=== PATIENT | female | born 1995 | race Caucasian/White ===

== ENCOUNTER 2021-08-05 16:42 | Emergency (ER) | payer SELFPAY ==
[2021-08-05 16:44] VITALS: BP 138/78; PULSE 92; RESP 16; TEMP 36.3; O2SAT 98; BMI 33.5
--- NOTE | 2021-08-05 16:58 | US_ITS ---
INDICATION: bleeding EXAMINATION: US OB Transvaginal TECHNIQUE: Transabdominal pelvic ultrasound was performed. Grayscale, spectral waveform, and color flow Doppler evaluation of the adnexa. COMPARISON: None. FINDINGS: UTERUS: Measures 8.4 x 4.7 x 3.9 cm. RIGHT OVARY: Measures 3.1 x 1.4 x 2.1 cm. Normal. LEFT OVARY: Measures 3.2 x 2.9 x 2.6 cm. There is a solid hypoechoic lesion in the left ovary measuring 1.3 x 1 x 1.2 cm. FREE FLUID: None. INTRAUTERINE GESTATIONAL SAC(s) (size/shape): Not identified. No adnexal ectopic visualized. US/Transvaginal w/Preg US IMPRESSION: of unknown location. Recommend serial beta hCGs and follow-up OB ultrasound in 1-2 weeks. 1.3 cm solid hypoechoic lesion in the left ovary is most likely a hemorrhagic corpus luteal cyst. Recommend close attention on follow-up. Electronically Signed: Raymundo Pan MD at 19:30 EDT Tel , Service support ,
--- NOTE | 2021-08-05 17:24 | ED.VIS.FEGU ---
HPI HPI - Female History of Present Illness Chief Complaint: Vag Bld, Preg Informant: patient Narrative Narrative: Patient presents with some mildly pink discharge that started today. Last menstrual cycle was 23 June. She is G1, P0. She has had some pelvic cramping off and on for about 2 weeks. This is not changed and is not different today. But she has never had the slightly pink discharge. She denies urinary symptoms. No lightheaded dizziness. No history of pelvic infections or surgery. She is on vitamins but no other meds. No medical conditions Medications: vitamins No known allergies. No abdominal or pelvic surgeries. Lives independently. [facility] Medical History Physical exam, pre-employment Home Medications no.144-folic acid [] 2 tab PO DAILY 08/05/21 [History Last Taken Unknown] Allergy/AdvReac Type Severity Reaction Status Date / Time No Known Allergies Allergy Verified 08/05/21 16:43 Social History Smoking Status: Current every day smoker tobacco type: cigarettes ROS ROS ED Constitutional Constitutional ED: Denies chills or fever(s) ENT ENT ED: Denies rhinorrhea Cardiovascular Cardiovascular: Denies chest pain, palpitations or racing heartbeat Respiratory/Chest Respiratory/Chest: Denies dyspnea Gastrointestinal Gastrointestinal: Denies constipation, diarrhea, melena, nausea or vomiting Genitourinary Genitourinary ED: Reports other Details: See history of present illness. ; Denies dysuria, hematuria or urinary frequency Musculoskeletal Musculoskeletal: Denies myalgias Integumentary Denies rash Neurologic Neurologic: Denies headache(s) Endocrine Endocrinology: Denies polydipsia or polyuria Hematologic/Lymphatic Hematologic/Lymphatic: Denies easy bruising Allergic/Immunologic Allergic/Immunologic ED: Denies urticaria EXAM Physical Exam Const Vital Signs: 08/05/21 16:44 Temperature 97.4 F L Temperature Source Temporal Pulse Rate 92 Respiratory Rate 16 Blood Pressure 138/78 H Blood Pressure Mean 98 Pulse Ox 98 Positive well nourished and well developed General Appearance ED: well developed and NAD; Negative for pallor HEENT Reports moist mucous membranes; Denies dry mucous membranes Negative for trauma Mouth ED: No dry mucous membranes Mouth: No dry mucous membranes Eyes General Eye ED: Negative for pale conjunctiva Neck no JVD Resp normal respiratory effort and clear to auscultation bilaterally Cardio regular rate and regular rhythm GI normal to inspection, nondistended, normoactive bowel sounds, soft to palpation, non-tender and non-distended Auscultation: normoactive bowel sounds Narrative: Nominal or pelvic area tenderness. No CVA tenderness. Neuro Sensorium / Orientation: alert Psych mental status grossly normal Skin no rashes or lesions noted General Skin Exam: Negative for pallor MDM MDM MDM Narrative Medical decision making narrative: Blood type is a positive. Quant is 619. Urine is negative. Ultrasound does not show any acute process. Patient's recheck. She has had no further spotting or pink coloration. She has no pain or discomfort. I do not think this represents an acute ectopic. She has a follow-up with her DESTINATION SPECIALIST physician in the morning. She will keep this. I explained that this could be in mentation bleed or a missed miscarriage or early miscarriage. She needs follow-up, likely repeat hCG and possible repeat ultrasound for definitive answer. Again we did discuss reasons to return. Lab Data Attestation: I reviewed the patient's lab results. Labs: Laboratory Results - last 24 hr 08/05/21 08/05/21 08/05/21 17:30 17:40 17:40 HCG, Quant 619 H Urine Color Yellow Urine Clarity Clear Urine pH 6.0 Ur Specific Helix 1.015 Urine Protein Negative Urine Glucose (UA) Normal Urine Ketones Negative Urine Occult Blood Negative Urine Nitrite Negative Urine Bilirubin Negative Urine Urobilinogen Normal Ur Leukocyte Esterase Negative Urine RBC 0 SEEN Urine WBC 0 SEEN Ur Squamous Epith Cells 0-5 SEEN Urine Bacteria 0 SEEN Urine Mucus 0 SEEN Blood Type A POSITIVE Radiography Diagnostic Testing: Clinical Impression(s) from Imaging Studies Obstetrics Ultrasound 08/05/21 16:58 IMPRESSION: of unknown location. Recommend serial beta hCGs and follow-up OB ultrasound in 1-2 weeks. 1.3 cm solid hypoechoic lesion in the left ovary is most likely a hemorrhagic corpus luteal cyst. Recommend close attention on follow-up. Electronically Signed: Raymundo Pan MD at 19:30 EDT Tel , Service support , Discharge Plan Triage Chief Complaint: Vag Bld, Preg ED Provider: Gold Jiménez Dx/Rx/DC Orders Clinical Impression: Threatened Instructions: ED Possible Miscarriage ... Prescriptions: No Action 400 mcg Tablet,Chewable 2 tab PO DAILY RF: 0 Primary Care Provider: Olive Ramos Referrals: Olive Ramos DO [Primary Care Provider] - 1 Day Disposition Disposition: Home, Self Care Discharge Date/Time: 08/05/21 20:09
[2021-08-05 17:38] LABS: Bacteria 0 SEEN /hpf (None Seen); Mucous, Urine 0 SEEN /hpf (<or=2+); Red Blood Cells-Urine 0 SEEN /hpf (0-5); White Blood Cells 0 SEEN /hpf (0-5)
[2021-08-05 18:01] LABS: Color, Urine Yellow (Yellow); Glucose, Dipstick Normal (Normal); Ketone-Dipstick Negative (Negative); Leukocyte Esterase-Dipstick Negative /ul (Negative); Nitrite-Dipstick Negative (Negative); Occult Blood-Urine Negative /ul (Negative); Protein-Dipstick Negative (Negative); Specific Gravity, Urine 1.015 (1.002-1.030); Urine Bilirubin Dipstick Negative (Negative); Urine Clarity Clear (Clear); Urine Urobilinogen Normal (Normal)
[2021-08-05 18:10] LABS: Squamous Epithelial Cells - UA 0-5 SEEN /hpf (5-10)
[2021-08-05 18:21] LABS: hCG Titer Quant., Serum 619 mIU/mL (1-3)
== END 2021-08-05 20:09 | disposition home or self-care (01) ==
PROVIDERS: Emergency Provider Emergency Medicine; PCP Obstetrics & Gynecology
DX: O20.0 Threatened abortion (principal); O99.330 Smoking (tobacco) complicating pregnancy, unspecified trimester; F17.210 Nicotine dependence, cigarettes, uncomplicated; Z3A.00 Weeks of gestation of pregnancy not specified
CPT/HCPCS: 76817; 81001; 84702; 86900; 86901; 99284; A4216

== ENCOUNTER 2021-08-15 16:06 | Emergency (ER) | payer OTHER, SELFPAY ==
[2021-08-15 16:07] VITALS: BP 122/107; PULSE 115; RESP 20; TEMP 36.1; O2SAT 98; BMI 33.7
--- NOTE | 2021-08-15 16:57 | EDS_ITS ---
HPI History of Present Illness Chief Complaint: Abd Pain Narrative Narrative: Patient is a 26-year-old female who is a G1, P0 approximately 7 weeks . She went and saw her OB today around 11 and had a ultrasound based on rising hCG levels. Patient states that this was accompanied by his bleeding and pain and that the ultrasound showed no signs of with in the uterus. Therefore she was discharged and advised to discuss having methotrexate injections secondary to an ectopic concern. Patient states that since that time she has had some increasing pain and secondary to this comes to the hospital for evaluation [facility] Medical History PCOS (polycystic ovarian syndrome) Physical exam, pre-employment Home Medications oxycodone-acetaminophen [Percocet] 1 tab PO Q6H PRN 3 Days #12 tab 08/15/21 [Rx Last Taken Unknown] promethazine 25 mg PO TID PRN #21 tab 08/15/21 [Rx Last Taken Unknown] Allergy/AdvReac Type Severity Reaction Status Date / Time No Known Allergies Allergy Verified 08/15/21 16:06 Social History Smoking Status: Current every day smoker tobacco type: cigarettes ROS ROS ED Constitutional Constitutional ED: Denies chills or fever(s) Cardiovascular Cardiovascular: Denies chest pain Respiratory/Chest Respiratory/Chest: Denies cough or dyspnea Gastrointestinal Gastrointestinal: Reports abdominal pain; Denies diarrhea, nausea or vomiting Genitourinary Genitourinary ED: Reports other Details: Positive vaginal bleeding ; Denies dysuria Musculoskeletal Musculoskeletal: Denies back pain or myalgias Integumentary Denies rash Neurologic Neurologic: Denies headache(s) Hematologic/Lymphatic Hematologic/Lymphatic: Denies easy bleeding or easy bruising EXAM Physical Exam Const Vital Signs: 08/15/21 16:07 Temperature 97.0 F L Temperature Source Temporal Pulse Rate 115 H Respiratory Rate 20 H Blood Pressure 122/107 H Blood Pressure Mean 112 Pulse Ox 98 Oxygen Delivery Method Room Air Positive well nourished and well developed General Appearance ED: well developed Eyes PERRL and EOMs intact bilaterally Neck supple Resp normal respiratory effort and clear to auscultation bilaterally Cardio regular rate and regular rhythm Rate: other Other Details: Radial pulses are plus 2 out of 4 bilaterally are equal and symmetric GI non-distended GI Narrative: There is mild tenderness palpation in the suprapubic to left lower quadrant region but no voluntary guarding or rigidity no pulsatile mass Auscultation: normoactive bowel sounds Palpation: soft Back/Spine no CVA tenderness Extremity normal to inspection Neuro oriented x3 and CN's II-XII intact bilaterally Sensorium / Orientation: alert Motor Exam: strength 5/5 throughout Psych mental status grossly normal Skin no rashes or lesions noted MDM MDM MDM Narrative Medical decision making narrative: Patient presented to the ER in no acute distress with a soft nonsurgical abdomen. I discussed the case with her BOX LINING MACHINE FEEDER Dr. Palacios. She inform you of the patient's outpatient blood work and the results of her ultrasound which occurred less than 8 hours ago. Therefore at this time with her abdominal exam in the ER and that blood work I do not feel there is need for repeat imaging or laboratory studies. Patient was given fluids morphine and Zofran. She stated there is only minimal improvement after the morphine so I did offer repeat ultrasound and pelvic exam. However patient states that as she just had the studies done she does not feel that repeating them are necessary. Therefore I gave the patient 1 mg of Dilaudid on reevaluation she reports improvement of her symptoms. Therefore at this time patient will be discharged home as her abdomen remains soft and nonsurgical and she will follow up with her BOX LINING MACHINE FEEDER for repeat evaluation Discharge Plan Triage Chief Complaint: Abd Pain ED Provider: Rohan Davis Dx/Rx/DC Orders Clinical Impression: Ectopic Instructions: ED Methotrexate for Ectopic ... Prescriptions: New oxycodone-acetaminophen [Percocet] 5-325 mg tablet 1 tab PO Q6H PRN (Reason: pain) 3 Days Qty: 12 RF: 0 promethazine 25 mg tablet 25 mg PO TID PRN (Reason: nausea and vomiting) Qty: 21 RF: 0 Primary Care Provider: Olive Ramos Referrals: Flakita Palacios MD [STAFF PHYSICIAN] - 1-2 Days if not improving Olive Ramos DO [Primary Care Provider] - Disposition Disposition: Home, Self Care
[2021-08-15] MEDS: Morphine 4 MG/ML Syringe IV (17:26)
[2021-08-15] MEDS: 0.9% Normal Saline 1,000 ML 999 ML IV (17:27)
[2021-08-15] MEDS: Ondansetron 4 MG/2 ML Vial IV (17:27)
[2021-08-15] MEDS: HYDROmorphone 1 MG/ML Syringe IV (18:08)
[2021-08-15 19:43] VITALS: BP 124/71; PULSE 84; O2SAT 98
== END 2021-08-15 20:03 | disposition home or self-care (01) ==
PROVIDERS: Emergency Provider Emergency Medicine; PCP Obstetrics & Gynecology
DX: O00.90 Unspecified ectopic pregnancy without intrauterine pregnancy (principal); O99.331 Smoking (tobacco) complicating pregnancy, first trimester; F17.210 Nicotine dependence, cigarettes, uncomplicated; Z3A.01 Less than 8 weeks gestation of pregnancy
CPT/HCPCS: 96361; 96374; 96375; 99283; J7030; A4216; J2405

== ENCOUNTER 2022-06-17 12:09 | Emergency (ER) | payer MEDICAID, SELFPAY ==
[2022-06-17 12:11] VITALS: BP 155/137; PULSE 116; RESP 20; TEMP 36.3; O2SAT 97; BMI 34.8
--- NOTE | 2022-06-17 12:17 | EX.ED.DYSGE1 ---
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 Lightheaded, she feels a little short of breath, she feels like her throat is swelling, and her left hand, where she was stung, is itchy but she denies any hives, peripheral swelling, or syncope. She does not remember ever having been stung by bee before. She is healthy. She is maybe 6 weeks . [facility] Medical History PCOS (polycystic ovarian syndrome) Physical exam, pre-employment Home Medications epinephrine 0.3 mg/0.3 mL injection, auto-injector 0.3 mg (0.3 mL) IM Q15M PRN anaphylaxis #2 ea 06/17/22 [Rx Last Taken Unknown] Allergy/AdvReac Type Severity Reaction Status Date / Time No Known Allergies Allergy Verified 06/17/22 12:13 Social History Smoking Status: Current every day smoker tobacco type: cigarettes ROS ROS ED Constitutional Constitutional ED: Denies chills or fever(s) Eyes Eyes: Denies change in vision or diplopia ENT ENT ED: Reports as per HPI and throat swelling; Denies rhinorrhea or sore throat Cardiovascular Cardiovascular: Denies chest pain or palpitations Respiratory/Chest Respiratory/Chest: Reports dyspnea; Denies cough Gastrointestinal Gastrointestinal: Denies abdominal pain, diarrhea, nausea or vomiting Genitourinary Genitourinary ED: Denies dysuria or hematuria Musculoskeletal Musculoskeletal: Denies back pain or neck pain Integumentary Reports as per HPI and pruritus; Denies abscess or rash Neurologic Neurologic: Denies headache(s), paresthesias or weakness Psychiatric Psychiatric: Denies anxiety or suicidal thoughts EXAM Physical Exam Const Vital Signs: 06/17/22 12:11 06/17/22 12:51 06/17/22 13:09 Temperature 97.3 F L Temperature Source Temporal Pulse Rate 116 H 97 91 Respiratory Rate 20 H 18 18 Blood Pressure 155/137 H 116/63 110/58 L Blood Pressure Mean 143 80 75 Pulse Ox 97 96 94 Oxygen Delivery Method Room Air Room Air Room Air Positive well nourished, well developed and obese General Appearance ED: well developed and NAD Nutritional Appearance: obese HEENT Reports moist mucous membranes normocephalic and atraumatic Eyes PERRL and EOMs intact bilaterally Neck full ROM and supple Resp normal respiratory effort and clear to auscultation bilaterally Cardio regular rate, regular rhythm and no murmurs Rate: tachycardic GI non-tender and non-distended Auscultation: normoactive bowel sounds Palpation: soft Back/Spine no CVA tenderness General Back: other FROM Extremity normal to inspection Extremity Narrative: Sting site in webspace between left fingers 3 and 4 is benign and nontender with no evidence of a foreign body or a wheal/flare reaction of any kind. General Extremety ED: Negative for edema, pulses abnormal or tenderness General Extremity: Negative for edema or pulses abnormal Neuro oriented x3, CN's II-XII intact bilaterally and no sensory deficits noted Sensorium / Orientation: awake and alert Motor Exam: strength 5/5 throughout Skin no rashes or lesions noted and no wounds Skin Narrative: No erythema on left hand which is where patient was stung and has pruritus. No rashes or urticaria. MDM MDM MDM Narrative Medical decision making narrative: I discussed risk and benefits of epinephrine, safe during . I offered her a half dose since her symptoms are mild she is not fully anaphylactic and she wants to try to avoid medications in the first place, I think that is reasonable and she does as well so she was given 0.15 mg IM and monitored. She had quick resolution of her symptoms, she was monitored for 2 hours and had no recurrence of any symptoms. I think she is stable to be discharged home. She was given a prescription for an EpiPen with a refill and we discussed use and reasons to return. She is comfortable with the plan. 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
[2022-06-17] MEDS: Epi Pen Junior (EQUIV) 0.15 MG Syringe IM (12:25)
--- NOTE | 2022-06-17 12:36 | ED.RN ---
Dr Olivas aware pt received Epi-pen.
[2022-06-17 12:51] VITALS: BP 116/63; PULSE 97; RESP 18; O2SAT 96
[2022-06-17 13:09] VITALS: BP 110/58; PULSE 91; RESP 18; O2SAT 94
[2022-06-17 14:00] VITALS: BP 106/54; PULSE 88; RESP 18; O2SAT 94
== END 2022-06-17 14:45 | disposition home or self-care (01) ==
PROVIDERS: Emergency Provider Emergency Medicine; Visit Provider Emergency Medicine
DX: O9A.211 Injury, poisoning and certain other consequences of external causes complicating pregnancy, first trimester (principal); O99.331 Smoking (tobacco) complicating pregnancy, first trimester; T63.454A Toxic effect of venom of hornets, undetermined, initial encounter; T78.2XXA Anaphylactic shock, unspecified, initial encounter; R06.02 Shortness of breath; F17.210 Nicotine dependence, cigarettes, uncomplicated; Z3A.01 Less than 8 weeks gestation of pregnancy
CPT/HCPCS: 96372; 99283

== ENCOUNTER 2022-07-13 13:55 | Emergency (ER) | payer MEDICAID, SELFPAY ==
[2022-07-13 13:56] VITALS: BP 144/82; PULSE 118; RESP 18; TEMP 36.6; O2SAT 97; BMI 36.6
--- NOTE | 2022-07-13 14:06 | EDS_ITS ---
HPI HPI - GI History of Present Illness Chief Complaint: Nausea/Vomiting Informant: patient Nausea/Vomiting/Emesis GI Symptom: Positive for Nausea and Vomiting Onset: Yesterday Quality: Positive for Nonbilious Severity: Severe Diarrhea/Melena/Hematochezia GI Symptom: Negative for Diarrhea, Melena or Hematochezia Associated Symptoms Associated Symptoms: Negative for Dysuria, Frequency, Hematuria or Urgency Narrative Narrative: Healthy 27-year-old patient 10 weeks , has had morning sickness for the past 3 weeks or so, significantly worse yesterday despite taking Zofran and vitamin B6, unable to keep down the medication and any fluids. She denies any syncope. She denies any abdominal pain, vaginal bleeding, discharge, other acute symptoms. [facility] Medical History PCOS (polycystic ovarian syndrome) Physical exam, pre-employment Home Medications epinephrine 0.3 mg/0.3 mL injection, auto-injector 0.3 mg (0.3 mL) IM Q15M PRN anaphylaxis #2 ea 06/17/22 [Rx Last Taken Unknown] metoclopramide HCl 10 mg tablet 10 mg PO Q6H PRN nausea and vomiting #20 tabs 07/13/22 [Rx Last Taken Unknown] ondansetron HCl 4 mg tablet 4 mg PO TID PRN Nausea 07/13/22 [History Last Taken Unknown] [id number]-[id number] 1 mg tablet 1 tab PO DAILY 07/13/22 [History Last Taken Unknown] pyridoxine (vitamin B6) 50 mg tablet 50 mg PO BID 07/13/22 [History Last Taken Unknown] Allergy/AdvReac Type Severity Reaction Status Date / Time No Known Allergies Allergy Verified 07/13/22 13:56 Social History Smoking Status: Current every day smoker tobacco type: cigarettes ROS ROS ED Constitutional Constitutional ED: Denies chills or fever(s) Eyes Eyes: Denies change in vision or diplopia ENT ENT ED: Denies rhinorrhea or sore throat Cardiovascular Cardiovascular: Denies chest pain or palpitations Respiratory/Chest Respiratory/Chest: Denies cough or dyspnea Gastrointestinal Gastrointestinal: Reports nausea and vomiting; Denies abdominal pain or diarrhea Genitourinary Genitourinary ED: Denies dysuria or hematuria Musculoskeletal Musculoskeletal: Denies back pain or neck pain Integumentary Denies abscess or rash Neurologic Neurologic: Denies headache(s), paresthesias or weakness Psychiatric Psychiatric: Denies anxiety or suicidal thoughts EXAM Physical Exam Const Vital Signs: 07/13/22 13:56 Temperature 97.8 F Temperature Source Temporal Pulse Rate 118 H Respiratory Rate 18 Blood Pressure 144/82 H Blood Pressure Mean 102 Pulse Ox 97 Oxygen Delivery Method Room Air Positive well nourished and well developed General Appearance ED: well developed and NAD HEENT Reports moist mucous membranes normocephalic and atraumatic Eyes PERRL and EOMs intact bilaterally Neck full ROM and supple Resp normal respiratory effort and clear to auscultation bilaterally Cardio regular rate, regular rhythm and no murmurs Rate: tachycardic GI non-tender and non-distended Auscultation: normoactive bowel sounds Palpation: soft Back/Spine no CVA tenderness General Back: other FROM Extremity normal to inspection General Extremety ED: Negative for edema, pulses abnormal or tenderness General Extremity: Negative for edema or pulses abnormal Neuro oriented x3, CN's II-XII intact bilaterally and no sensory deficits noted Sensorium / Orientation: awake and alert Motor Exam: strength 5/5 throughout Skin no rashes or lesions noted and no wounds MDM MDM MDM Narrative Medical decision making narrative: Patient was given 2 L of IV fluid in addition to Zofran initially, she had some improvement but still felt a little nauseated, she had very small amount of vomiting as well. Showed addition to that, she was given Reglan 5 mg in addition to 10 mill equivalent IV potassium chloride given that her potassium is a little bit on the low side. She appears well clinically. As long she is able to tolerate oral fluids, I will discharge her with a prescription for Reglan, and have her follow-up with her LETTER STAMPING MACHINE OPERATOR. Lab Data Attestation: I reviewed the patient's lab results. Labs: Laboratory Results - last 24 hr 07/13/22 14:10 Sodium 138 Potassium 3.4 L Chloride 105 Carbon Dioxide 21.0 Anion Gap 12 BUN 5 L Creatinine 0.52 L Estim Creat Clear Calc 137.85 Est GFR (MDRD) Af Amer 181 Est GFR (MDRD) Non-Af 149 BUN/Creatinine Ratio 9.7 L Glucose 100 Calcium 8.8 Discharge Plan Triage Chief Complaint: Nausea/Vomiting Other Complaint: ED Provider: Pranay Olivas Dx/Rx/DC Orders Clinical Impression: Hyperemesis gravidarum, Hypokalemia due to excessive gastrointestinal loss of potassium, First trimester Instructions: ED Hyperemesis Gravidarum Prescriptions: New metoclopramide HCl [metoclopramide HCl] 10 mg tablet 10 mg PO Q6H PRN (Reason: nausea and vomiting) Qty: 20 0RF No Action epinephrine 0.3 mg/0.3 mL auto-injector 0.3 mg IM Q15M PRN (Reason: anaphylaxis) Qty: 2 1RF Rx Instructions: for 2 doses ondansetron HCl 4 mg tablet 4 mg PO TID PRN (Reason: Nausea) Label Comments: TAKE 1 TABLET BY MOUTH EVERY 8 HOURS NEEDED FOR NAUSEA AND VOMITING 1 mg Tablet 1 tab PO DAILY pyridoxine (vitamin B6) 50 mg tablet 50 mg PO BID Label Comments: TAKE 1 TABLET BY MOUTH TWICE DAILY Primary Care Provider: Care Physician,No Primary Referrals: Olive Ramos DO [Med Staff - Active Staff] - 3-5 Days if not improving Disposition Disposition: Home, Self Care
[2022-07-13] MEDS: Ondansetron 4 MG/2 ML Vial IV (14:15)
[2022-07-13] MEDS: 0.9% Normal Saline 1,000 ML 999 ML IV ×2 (14:17→15:24)
[2022-07-13 14:34] LABS: Anion Gap 12 (5-15); BUN 5 mg/dL (7-18); BUN/Creat Ratio 9.7 RATIO (10-20); Calcium,Total 8.8 mg/dL (8.5-10.1); Chloride 105 mmol/L (98-107); Creatinine, Serum 0.52 mg/dL (0.55-1.02); EST Glomerular Filtration Rate 149 mL/min (>60); Est Glom Filt Rate - Afr Amer 181 mL/min (>60); Estimated Creatinine Clearance 137.85 ml/min; Glucose 100 mg/dL (74-106); Potassium 3.4 mmol/L (3.5-5.1); Sodium Level 138 mmol/L (136-145)
[2022-07-13] MEDS: Metoclopramide 10 MG/2 ML Vial 5 MG IV (15:24)
[2022-07-13] MEDS: Potassium Chloride 10mEq/100mL 10 MEQ/100 ML IV.SOLN. 100 MEQ IV BOLUS (15:40)
[2022-07-13 16:00] VITALS: BP 130/80; PULSE 102; RESP 18; O2SAT 97
== END 2022-07-13 17:48 | disposition home or self-care (01) ==
PROVIDERS: Emergency Provider Emergency Medicine; Visit Provider Emergency Medicine
DX: O21.0 Mild hyperemesis gravidarum (principal); O99.281 Endocrine, nutritional and metabolic diseases complicating pregnancy, first trimester; E87.6 Hypokalemia; O99.331 Smoking (tobacco) complicating pregnancy, first trimester; F17.210 Nicotine dependence, cigarettes, uncomplicated; Z3A.10 10 weeks gestation of pregnancy
CPT/HCPCS: 80048; 96361; 96365; 96366; 96375; 99283; J7030; J7050; A4216; J2405

== ENCOUNTER 2022-07-14 08:44 | Emergency (ER) | payer MEDICAID, SELFPAY ==
[2022-07-14 08:45] VITALS: BP 159/91; PULSE 92; RESP 16; TEMP 36.3; O2SAT 98; BMI 36.6
--- NOTE | 2022-07-14 09:03 | EX.ED.DYSGE1 ---
HPI History of Present Illness Chief Complaint: Nausea/Vomiting/Diarrhea Detail of Chief Complaint: Nausea, vomiting diarrhea since discharge from ER yesterday evening at 1700 Informant: patient Onset/Context/Timing Onset: Days (Nausea and vomiting started 3 days ago. Diarrhea started last evening) Context: Sudden Onset Timing: Intermittent and Waxes and wanes Quality: Churning abdominal pain Location: Abdomen Current Severity: Mild Maximum Severity: Moderate Worsened by: Attempt to eat or drink anything Relieved by: Not Associated Symptoms Associated Symptoms: Thirst and lightheadedness Narrative Narrative: Patient is a 27-year-old female who had an ectopic treated with methotrexate. She states she is approximately 10 weeks gestation. She denies vaginal bleeding or discharge. She does endorse decreased urine output. She does endorse thirst with dry mouth. She states anytime she attempts to drink anything she vomits. The diarrhea started after she was discharged from the ER last evening. She has had 5 loose watery brown-colored stool. There is no blood or mucus. She has not had any ill contacts. She also reports vomiting 5 times. She states she was treated with Zofran with no benefit last evening. She was discharged to home with Reglan since it did work. She states she is not able to swallow the tablet. She did contact her stacking machine operator Dr. Palacios who recommended she come to the emergency department. She denies fever, chills night sweats. She denies ocular, visual auditory symptoms. She denies cardiac or respiratory symptoms. She denies dysuria, frequency or hematuria. She denies rash or any skin lesions. Prior similar symptoms: Yes Recent Illness/Hospitalization: Yes [facility] Medical History (Updated 07/14/22 @ 13:[address] Oswaldo Solomon MD) Ectopic PCOS (polycystic ovarian syndrome) Physical exam, pre-employment Sexually transmitted infection Home Medications epinephrine 0.3 mg/0.3 mL injection, auto-injector 0.3 mg (0.3 mL) IM Q15M PRN anaphylaxis #2 ea 06/17/22 [Rx Last Taken Unknown] metoclopramide HCl 10 mg tablet 10 mg PO Q6H PRN nausea and vomiting #20 tabs 07/13/22 [Rx Last Taken Unknown] ondansetron HCl 4 mg tablet 4 mg PO TID PRN Nausea 07/13/22 [History Last Taken Unknown] raschtmv-[id number] 1 mg tablet 1 tab PO DAILY 07/13/22 [History Last Taken Unknown] pyridoxine (vitamin B6) 50 mg tablet 50 mg PO BID 07/13/22 [History Last Taken Unknown] cephalexin 500 mg capsule 500 mg PO Q6 #28 CAPSULES 07/14/22 [Rx Last Taken Unknown] haloperidol 1 mg tablet 1 mg PO Q8H PRN nausea and vomiting 48 hours #6 tabs 07/14/22 [Rx Last Taken Unknown] Allergy/AdvReac Type Severity Reaction Status Date / Time No Known Allergies Allergy Verified 07/14/22 08:48 Social History (Updated 07/14/22 @ 09:[address] Oswaldo Solomon MD) household members: significant other Smoking Status: Current every day smoker tobacco type: cigarettes details: Patient presently denies alcohol consumption. substance use type: does not use ROS ROS ED Constitutional Constitutional ED: Denies chills, fever(s), subjective, sweats or weight loss Eyes Eyes: Denies blurry vision, change in vision or diplopia ENT ENT ED: Denies ear pain, rhinorrhea or sore throat Cardiovascular Cardiovascular: Reports other Details: Orthostatic symptoms ; Denies chest pain, orthopnea, palpitations, paroxysmal nocturnal dyspnea or racing heartbeat Respiratory/Chest Respiratory/Chest: Denies cough, dyspnea, dyspnea on exertion, orthopnea or paroxysmal nocturnal dyspnea Gastrointestinal Gastrointestinal: Reports abdominal pain, diarrhea, nausea and vomiting; Denies constipation or melena Genitourinary Genitourinary ED: Denies dysuria, hematuria or urinary frequency Musculoskeletal Musculoskeletal: Denies arthralgias, back pain, myalgias or neck pain Integumentary Denies Abrasions or rash Neurologic Neurologic: Denies headache(s), paresthesias or weakness Psychiatric Psychiatric: Denies anxiety or depression Endocrine Endocrinology: Denies cold intolerance or heat intolerance Hematologic/Lymphatic Hematologic/Lymphatic: Reports systems reviewed and no addt'l complaints, except as documented and none EXAM Physical Exam Const Vital Signs: 07/14/22 08:45 07/14/22 09:12 Temperature 97.4 F L Temperature Source Temporal Pulse Rate 92 Pulse Rate [Lying] 83 Pulse Rate [Sitting (for 1 minute prior to obtaining)] 82 Pulse Rate [Standing (for 1 minute prior to obtaining)] 89 Respiratory Rate 16 Blood Pressure 159/91 H Blood Pressure [Lying] 110/55 L Blood Pressure [Sitting (for 1 minute prior to obtaining)] 109/64 Blood Pressure [Standing (for 1 minute prior to obtaining)] 123/78 H Blood Pressure Mean 113 Blood Pressure Mean [Lying] 73 Blood Pressure Mean [Sitting (for 1 minute prior to obtaining)] 79 Blood Pressure Mean [Standing (for 1 minute prior to obtaining)] 93 Pulse Ox 98 Oxygen Delivery Method Room Air Positive well nourished, well developed and obese; Negative for cachectic, contractures or unkempt General Appearance ED: well developed and NAD; Negative for unkempt, cachectic, contractures, cyanotic, diaphoretic or pallor Nutritional Appearance: obese; Negative for cachectic HEENT Reports dry mucous membranes HEENT Narrative: Ears normal. Nares patent. Uvula midline. No deviation with protrusion. No erythema or exudate of the posterior pharynx. Head is normocephalic and atraumatic. Mouth ED: Yes dry mucous membranes Mouth: dry mucous membranes Eyes PERRL and EOMs intact bilaterally General Eye ED: Negative for pale conjunctiva or scleral icterus Neck no lymphadenopathy, supple and no JVD Resp normal respiratory effort and clear to auscultation bilaterally Cardio regular rate, regular rhythm, S1 normal heart sound, S2 normal heart sound and no murmurs GI normal to inspection, nondistended, normoactive bowel sounds, non-tender, non-distended and no masses; Negative for hepatosplenomegaly Palpation: soft Back/Spine no CVA tenderness Extremity normal to inspection General Extremety ED: Negative for edema or tenderness General Extremity: Negative for edema Neuro oriented x3, CN's II-XII intact bilaterally and no sensory deficits noted Sensorium / Orientation: alert Motor Exam: strength 5/5 throughout Psych mental status grossly normal Appearance: Negative for unkempt Skin no rashes or lesions noted, no wounds and skin turgor normal General Skin Exam: Negative for jaundice or pallor MDM MDM MDM Narrative Medical decision making narrative: Clinically patient is dehydrated. Normal saline was ordered wide open. Since patient reports that Reglan alleviated her nausea and vomiting she was ordered IV Reglan. Basic metabolic panel was obtained to assess electrolytes. Of note yesterday's blood results were reviewed and she did have mild hypokalemia. UA was obtained to assess specific gravity, and presence of ketones. Since patient reports orthostatic symptoms orthostatic vital signs were obtained. We will contact her stacking machine operator after reassessment and review of laboratory results. I was informed by nursing staff the patient still has nausea and spite of IV Reglan. 2 mg of Haldol was ordered. Patient was given a can of nav tay. She was able to consume the can of nav tay without vomiting. She was reassessed at 1300. Patient would like to go home. Case was discussed with Dr. Fraire nurse practitioner. They are aware they need to check the urine culture results. They were aware of her treatment in the emergency department and plan. Lab Data Attestation: I reviewed the patient's lab results. Lab results narrative: Basic metabolic panel is unremarkable. Urine reveals ketones, urobilinogen, leukoesterase. Macro was negative for blood or nitrites. My [place] is 0-5 RBCs and WBCs. There is 1+ bacteria. Urine culture was obtained and patient will receive 1 g of Rocephin. Labs: Laboratory Results - last 24 hr 07/14/22 07/14/22 09:05 09:20 Sodium 138 Potassium 3.8 Chloride 108 H Carbon Dioxide 21.0 Anion Gap 9 BUN 3 L Creatinine 0.55 Estim Creat Clear Calc 130.33 Est GFR (MDRD) Af Amer 168 Est GFR (MDRD) Non-Af 139 BUN/Creatinine Ratio 5.5 L Glucose 101 Calcium 8.5 Urine Color Yellow Urine Clarity Clear Urine pH 6.0 Ur Specific [place] 1.015 Urine Protein Negative Urine Glucose (UA) Normal Urine Ketones 150 A* Urine Occult Blood Negative Urine Nitrite Negative Urine Bilirubin Negative Urine Urobilinogen 4 H Ur Leukocyte Esterase 500 H Urine RBC 0-5 SEEN Urine WBC 0-5 SEEN Ur Squamous Epith Cells 0-5 SEEN Urine Bacteria 1+ Urine Mucus 0 SEEN Discharge Plan Triage Chief Complaint: Nausea/Vomiting/Diarrhea ED Provider: Oswaldo Solomon Dx/Rx/DC Orders Clinical Impression: Hyperemesis gravidarum with dehydration, Ketosis, Symptomatic orthostatic increase in heart rate, Urinary tract infection during Instructions: ED Hyperemesis Gravidarum, ED Cystitis Female Adult Prescriptions: New haloperidol 1 mg tablet 1 mg PO Q8H PRN (Reason: nausea and vomiting) 2 Days Qty: 6 0RF cephalexin [cephalexin] 500 mg capsule 500 mg PO Q6 Qty: 28 0RF No Action epinephrine 0.3 mg/0.3 mL auto-injector 0.3 mg IM Q15M PRN (Reason: anaphylaxis) Qty: 2 1RF Rx Instructions: for 2 doses ondansetron HCl 4 mg tablet 4 mg PO TID PRN (Reason: Nausea) Label Comments: TAKE 1 TABLET BY MOUTH EVERY 8 HOURS NEEDED FOR NAUSEA AND VOMITING 1 mg Tablet 1 tab PO DAILY pyridoxine (vitamin B6) 50 mg tablet 50 mg PO BID Label Comments: TAKE 1 TABLET BY MOUTH TWICE DAILY metoclopramide HCl [metoclopramide HCl] 10 mg tablet 10 mg PO Q6H PRN (Reason: nausea and vomiting) Qty: 20 0RF Primary Care Provider: Care Physician,No Primary Referrals: Care Physician,No Primary [Primary Care Provider] - Disposition Disposition: Home, Self Care
[2022-07-14] MEDS: 0.9% Normal Saline 1,000 ML 1000 ML IV ×2 (09:08→10:51)
[2022-07-14] MEDS: Metoclopramide 10 MG/2 ML Vial IV (09:09)
[2022-07-14 09:12] VITALS: BP 109/64; BP 110/55; BP 123/78; PULSE 82; PULSE 83; PULSE 89
[2022-07-14 09:30] LABS: Mucous, Urine 0 SEEN /hpf (<or=2+)
[2022-07-14 09:32] LABS: Anion Gap 9 (5-15); BUN 3 mg/dL (7-18); BUN/Creat Ratio 5.5 RATIO (10-20); Calcium,Total 8.5 mg/dL (8.5-10.1); Chloride 108 mmol/L (98-107); Creatinine, Serum 0.55 mg/dL (0.55-1.02); EST Glomerular Filtration Rate 139 mL/min (>60); Est Glom Filt Rate - Afr Amer 168 mL/min (>60); Estimated Creatinine Clearance 130.33 ml/min; Glucose 101 mg/dL (74-106); Potassium 3.8 mmol/L (3.5-5.1); Sodium Level 138 mmol/L (136-145)
[2022-07-14 09:54] LABS: Color, Urine Yellow (Yellow); Glucose, Dipstick Normal (Normal); Leukocyte Esterase-Dipstick 500 /ul (Negative); Nitrite-Dipstick Negative (Negative); Occult Blood-Urine Negative /ul (Negative); Protein-Dipstick Negative (Negative); Specific Gravity, Urine 1.015 (1.002-1.030); Urine Bilirubin Dipstick Negative (Negative); Urine Clarity Clear (Clear); Urine Urobilinogen 4 mg/dl (Normal)
[2022-07-14 10:03] LABS: Ketone-Dipstick 150 mg/dl (Negative)
[2022-07-14 10:17] LABS: Bacteria 1+ /hpf (None Seen); Red Blood Cells-Urine 0-5 SEEN /hpf (0-5); Squamous Epithelial Cells - UA 0-5 SEEN /hpf (5-10); White Blood Cells 0-5 SEEN /hpf (0-5)
[2022-07-14] MEDS: Haloperidol Lactate 5 MG/ML Vial 2 MG IV (11:23)
[2022-07-14] MEDS: Ceftriaxone 1 GM/50 ML BAG IV (11:41)
--- NOTE | 2022-07-14 12:39 | ED.RN ---
Dr. Palacios, [facility], repaged for Dr. Solomon
== END 2022-07-14 13:18 | disposition home or self-care (01) ==
PROVIDERS: Emergency Provider Emergency Medicine; Visit Provider Emergency Medicine
DX: O00.90 Unspecified ectopic pregnancy without intrauterine pregnancy (principal); E88.89 Other specified metabolic disorders; O21.1 Hyperemesis gravidarum with metabolic disturbance; F17.210 Nicotine dependence, cigarettes, uncomplicated; O99.331 Smoking (tobacco) complicating pregnancy, first trimester; O23.41 Unspecified infection of urinary tract in pregnancy, first trimester; O99.281 Endocrine, nutritional and metabolic diseases complicating pregnancy, first trimester
CPT/HCPCS: 80048; 81001; 87086; 87088; 96361; 96365; 96375; 99284; J7030; A4216

== ENCOUNTER 2022-07-25 21:14 | Emergency (ER) | payer MEDICAID, SELFPAY ==
[2022-07-25 21:14] VITALS: BP 105/60; PULSE 95; RESP 18; TEMP 36.6; O2SAT 97; BMI 35.6
--- NOTE | 2022-07-25 21:46 | EX.ED.DYSGE1 ---
HPI <Dr. Ritchie Brewer DO - Last Filed: 07/31/22 07:16> History of Present Illness Chief Complaint: Nausea/Vomiting Informant: patient and spouse/S.O. Narrative Narrative: 11 weeks and 4 days gestation followed by [facility] OB Dr. Palacios and Richard. History of hyperemesis gravidarum, she is on vitamin B6 twice a day she is on Unisom, she is on Zofran prescribed by her OB. Increasing vomiting today unable to keep things down. Decreased urine output. Denies diarrhea. Denies abdominal pain. Denies urinary symptoms. Denies any abnormal vaginal discharge or bleeding. Presented here less than 2 weeks ago for similar symptoms. Treated with medicines relief she did not like Haldol per her report. Prior similar symptoms: Yes PFSH <Dr. Ritchie Brewer DO - Last Filed: 07/31/22 07:16> [facility] Medical History Ectopic PCOS (polycystic ovarian syndrome) Physical exam, pre-employment Sexually transmitted infection Home Medications epinephrine 0.3 mg/0.3 mL injection, auto-injector 0.3 mg (0.3 mL) IM Q15M PRN anaphylaxis #2 ea 06/17/22 [Rx Last Taken Unknown] metoclopramide HCl 10 mg tablet 10 mg PO Q6H PRN nausea and vomiting #20 tabs 07/13/22 [Rx Last Taken Unknown] ondansetron HCl 4 mg tablet 4 mg PO TID PRN Nausea 07/13/22 [History Last Taken Unknown] [id number] 1 mg tablet 1 tab PO DAILY 07/13/22 [History Last Taken Unknown] pyridoxine (vitamin B6) 50 mg tablet 50 mg PO BID 07/13/22 [History Last Taken Unknown] cephalexin 500 mg capsule 500 mg PO TID #12 caps 07/25/22 [Rx Last Taken Unknown] Allergy/AdvReac Type Severity Reaction Status Date / Time No Known Allergies Allergy Verified 07/25/22 21:16 Social History household members: significant other Smoking Status: Current every day smoker tobacco type: cigarettes details: Patient presently denies alcohol consumption. substance use type: does not use ROS <Dr. Ritchie Le, DO - Last Filed: 07/31/22 07:16> ROS ED Constitutional Constitutional ED: Denies chills, fever(s) or sweats Eyes Eyes: Denies change in vision ENT ENT ED: Denies dysphagia or sore throat Cardiovascular Cardiovascular: Denies chest pain, leg edema, palpitations or racing heartbeat Respiratory/Chest Respiratory/Chest: Denies cough, dyspnea or dyspnea on exertion Gastrointestinal Gastrointestinal: Reports nausea and vomiting; Denies abdominal pain or diarrhea Genitourinary Genitourinary ED: Denies dysuria, hematuria or urinary frequency Musculoskeletal Musculoskeletal: Denies back pain, extremity pain or neck pain Integumentary Denies rash or wounds Neurologic Neurologic: Denies headache(s), paresthesias or weakness EXAM <Dr. Ritchie Brewer, DO - Last Filed: 07/31/22 07:16> Physical Exam Const Vital Signs: 07/25/22 21:14 Temperature 97.9 F Temperature Source Temporal Pulse Rate 95 Respiratory Rate 18 Blood Pressure 105/60 Blood Pressure Mean 75 Pulse Ox 97 Oxygen Delivery Method Room Air Positive well nourished and well developed General Appearance ED: well developed and NAD HEENT Reports dry mucous membranes HEENT Narrative: mild dry membranes normocephalic and atraumatic Mouth ED: Yes dry mucous membranes Mouth: dry mucous membranes Eyes PERRL, EOMs intact bilaterally and conjunctivae normal General Eye ED: Yes normal appearance of both eyes Neck no lymphadenopathy and supple General: Negative for tenderness Chest Wall Chest: Negative for tenderness Resp normal respiratory effort and normal air movement Effort and Inspection: symmetric chest movement; Negative for respiratory distress Cardio regular rate, regular rhythm and no murmurs Peripheral Pulses: pulses 2+ throughout GI normal to inspection, nondistended, normoactive bowel sounds and non-tender Palpation: Negative for guarding or rebound tenderness present Back/Spine no CVA tenderness and no thoracic nor lumbar tenderness Extremity normal to inspection General Extremety ED: Negative for edema or tenderness General Extremity: Negative for edema Neuro oriented x3 and no sensory deficits noted Sensorium / Orientation: awake and alert Skin no rashes or lesions noted and no wounds <Dr. Dmitry Castillo, DO - Last Filed: 07/25/22 23:48> Physical Exam Const Vital Signs: 07/25/22 21:14 Temperature 97.9 F Temperature Source Temporal Pulse Rate 95 Respiratory Rate 18 Blood Pressure 105/60 Blood Pressure Mean 75 Pulse Ox 97 Oxygen Delivery Method Room Air [facility] <Dr. Ritchie Brewer, DO - Last Filed: 07/31/22 07:16> [facility] Narrative Medical decision making narrative: Patient clinically dry on exam. 2 L of IV fluids ordered. IV Reglan. Electrolytes normal urinary ketones or signs of infection culture sent. Bedside ultrasound performed by myself heart tones 147. Reevaluation after 1 L fluids was clinically feeling better additional liter is pending at this time. Discussed findings the patient with UTI in , medication is treatment until cultures. Keflex ordered along with p.o. challenge. If she can tolerate p.o. intake she will finish her IV fluids in the discharge. She is on medication treatment per her OB home. She has Reglan for which she was told not to continue. She will discuss with them any changes in regimen. Lab Data Attestation: I reviewed the patient's lab results. Labs: Laboratory Results - last 24 hr 07/25/22 07/25/22 22:00 22:00 Sodium 139 Potassium 3.5 Chloride 108 H Carbon Dioxide 23.0 Anion Gap 8 BUN 4 L Creatinine 0.47 L Estim Creat Clear Calc 152.51 Est GFR (MDRD) Af Amer 202 Est GFR (MDRD) Non-Af 167 BUN/Creatinine Ratio 8.5 L Glucose 105 Calcium 8.9 Urine Color Yellow Urine Clarity Sl. Cloudy Urine pH 6.5 Ur Specific [place] 1.015 Urine Protein 15 H Urine Glucose (UA) Normal Urine Ketones 50 H Urine Occult Blood 10 H Urine Nitrite Negative Urine Bilirubin Negative Urine Urobilinogen 1 H Ur Leukocyte Esterase 500 H Urine RBC 0-5 SEEN Urine WBC 10-25 SEEN Ur Squamous Epith Cells 10-25 SEEN Urine Bacteria 4+ Urine Mucus 1+ <Dr. Dmitry Castillo, DO - Last Filed: 07/25/22 23:48> [facility] Narrative Medical decision making narrative: Patient clinically dry on exam. 2 L of IV fluids ordered. IV Reglan. Electrolytes normal urinary ketones or signs of infection culture sent. Bedside ultrasound performed by myself heart tones 147. Reevaluation after 1 L fluids was clinically feeling better additional liter is pending at this time. Discussed findings the patient with UTI in , medication is treatment until cultures. Keflex ordered along with p.o. challenge. If she can tolerate p.o. intake she will finish her IV fluids in the discharge. She is on medication treatment per her OB home. She has Reglan for which she was told not to continue. She will discuss with them any changes in regimen. Dr. Castillo dictating: After the patient was ordered Keflex she did not want to take this because she was told that it was making her more nauseous. She was prescribed this her last ER visit. I reviewed her urine culture which showed 25,000-50,000 mixed gram-positive organisms. We did discuss the need for antibiotic coverage. I spoke with Dr. Ramos who stated that since the previous urine culture was negative and the patient experience nausea with the Keflex it was reasonable for her to hold this. By the time I had got off the phone with her the patient had already taken the Keflex and left the emergency room. I called her to tell her what Dr. Ramos had told me. I stated that she also told me she had given her a prescription for Phenergan suppositories. She reported to me at that point that she did not fill them today. She stated that she had vomited in the parking lot after leaving. I asked her if she needed to be receiving and she stated no. She stated that she would come back to the emergency room tomorrow if she was not feeling better. She has an office appointment on Thursday and her OB will see her then to recheck her urine. Urine culture was sent today. Lab Data Labs: Laboratory Results - last 24 hr 07/25/22 07/25/22 22:00 22:00 Sodium 139 Potassium 3.5 Chloride 108 H Carbon Dioxide 23.0 Anion Gap 8 BUN 4 L Creatinine 0.47 L Estim Creat Clear Calc 152.51 Est GFR (MDRD) Af Amer 202 Est GFR (MDRD) Non-Af 167 BUN/Creatinine Ratio 8.5 L Glucose 105 Calcium 8.9 Urine Color Yellow Urine Clarity Sl. Cloudy Urine pH 6.5 Ur Specific [place] 1.015 Urine Protein 15 H Urine Glucose (UA) Normal Urine Ketones 50 H Urine Occult Blood 10 H Urine Nitrite Negative Urine Bilirubin Negative Urine Urobilinogen 1 H Ur Leukocyte Esterase 500 H Urine RBC 0-5 SEEN Urine WBC 10-25 SEEN Ur Squamous Epith Cells 10-25 SEEN Urine Bacteria 4+ Urine Mucus 1+ Discharge Plan Triage Chief Complaint: Nausea/Vomiting ED Provider: Ritchie Brewer Dx/Rx/DC Orders Clinical Impression: Hyperemesis gravidarum, UTI in , Dehydration Instructions: Urinary Tract Infections in Women, Dehydration, ED Hyperemesis Gravidarum Prescriptions: New cephalexin [cephalexin] 500 mg capsule 500 mg PO TID Qty: 12 0RF No Action epinephrine 0.3 mg/0.3 mL auto-injector 0.3 mg IM Q15M PRN (Reason: anaphylaxis) Qty: 2 1RF Rx Instructions: for 2 doses ondansetron HCl 4 mg tablet 4 mg PO TID PRN (Reason: Nausea) Label Comments: TAKE 1 TABLET BY MOUTH EVERY 8 HOURS NEEDED FOR NAUSEA AND VOMITING 1 mg Tablet 1 tab PO DAILY pyridoxine (vitamin B6) 50 mg tablet 50 mg PO BID Label Comments: TAKE 1 TABLET BY MOUTH TWICE DAILY metoclopramide HCl [metoclopramide HCl] 10 mg tablet 10 mg PO Q6H PRN (Reason: nausea and vomiting) Qty: 20 0RF Primary Care Provider: Care Physician,No Primary Referrals: Olive Ramos DO [Med Staff - Active Staff] - 3-5 Days Care Physician,No Primary [Primary Care Provider] - Activity Restrictions/Additional Instructions: Urine with ketones. Normal electrolytes. Status post 2 L of normal saline. Urine noted signs of infection culture sent. Take antibiotic as prescribed pending urine results. Follow-up with your OB team. Continue home medications. Disposition Disposition: Home, Self Care Discharge Date/Time: 07/25/22 23:39
[2022-07-25] MEDS: Metoclopramide 10 MG/2 ML Vial IV (21:56)
[2022-07-25] MEDS: 0.9% Normal Saline 1,000 ML 999 ML IV ×2 (21:56→23:00)
[2022-07-25 22:19] LABS: Color, Urine Yellow (Yellow); Glucose, Dipstick Normal (Normal); Ketone-Dipstick 50 mg/dl (Negative); Leukocyte Esterase-Dipstick 500 /ul (Negative); Nitrite-Dipstick Negative (Negative); Occult Blood-Urine 10 /ul (Negative); Protein-Dipstick 15 mg/dl (Negative); Specific Gravity, Urine 1.015 (1.002-1.030); Urine Bilirubin Dipstick Negative (Negative); Urine Clarity Sl. Cloudy (Clear); Urine Urobilinogen 1 mg/dl (Normal); Urine pH 6.5 (5.0 - 8.0)
[2022-07-25 22:27] LABS: White Blood Cells 10-25 SEEN /hpf (0-5)
[2022-07-25 22:28] LABS: Bacteria 4+ /hpf (None Seen); Mucous, Urine 1+ /hpf (<or=2+); Red Blood Cells-Urine 0-5 SEEN /hpf (0-5); Squamous Epithelial Cells - UA 10-25 SEEN /hpf (5-10)
[2022-07-25 22:30] LABS: Anion Gap 8 (5-15); BUN 4 mg/dL (7-18); BUN/Creat Ratio 8.5 RATIO (10-20); Calcium,Total 8.9 mg/dL (8.5-10.1); Chloride 108 mmol/L (98-107); Creatinine, Serum 0.47 mg/dL (0.55-1.02); EST Glomerular Filtration Rate 167 mL/min (>60); Est Glom Filt Rate - Afr Amer 202 mL/min (>60); Estimated Creatinine Clearance 152.51 ml/min; Glucose 105 mg/dL (74-106); Potassium 3.5 mmol/L (3.5-5.1); Sodium Level 139 mmol/L (136-145)
--- NOTE | 2022-07-25 23:25 | ED.RN ---
Addendum entered by Carmina Rogers 07/25/22 23:36: Pt requesting to take Keflex, have IV out and not finishing fluids. Dr. Castillo updated and care provided. DC instructions given. Original Note: Pt refusing to take Keflex. Stating my ob told me not to take it because it makes me nauseated Dr. Castillo updated.
== END 2022-07-25 23:39 | disposition home or self-care (01) ==
PROVIDERS: Emergency Provider Emergency Medicine; Visit Provider Emergency Medicine
DX: O23.41 Unspecified infection of urinary tract in pregnancy, first trimester (principal); O99.281 Endocrine, nutritional and metabolic diseases complicating pregnancy, first trimester; O99.331 Smoking (tobacco) complicating pregnancy, first trimester; O21.0 Mild hyperemesis gravidarum; N39.0 Urinary tract infection, site not specified; B96.89 Other specified bacterial agents as the cause of diseases classified elsewhere; F17.210 Nicotine dependence, cigarettes, uncomplicated; E86.0 Dehydration; Z3A.01 Less than 8 weeks gestation of pregnancy
CPT/HCPCS: 80048; 81001; 87086; 87088; 96361; 96374; 99284; J7030; A4216

== ENCOUNTER 2022-12-26 15:25 | Outpatient (CLI) | payer MEDICAID, SELFPAY ==
[2022-12-26 15:45] VITALS: BMI 38.6
[2022-12-26 15:53] VITALS: BP 133/74; PULSE 90; TEMP 36.7
[2022-12-26 16:29] LABS: ROM Internal Control Test YES-OK TO RESULT pt. (Internal QC); ROM Patient Test Negative (Negative)
--- NOTE | 2022-12-26 19:13 | OB.TRI.HP_ITS ---
HPI - General HPI Narrative CLAUDINE BARBA, is a 27 F at 33.4 weeks gestation who presents to triage with leaking of fluid. Patient stated she has noticed in the past week that she is leaking some type of fluid from vagina. Underwear are constantly wet. No odor or color to fluid. Positive movement. Denies any vaginal bl eeding or pain. Maternal Data Information NORA Calculator Estimated Delivery Date Method Current WG Current Estimate 02/09/23 Manual 33w 4d PFSH PFSH Medical History Ectopic PCOS (polycystic ovarian syndrome) Physical exam, pre-employment Sexually transmitted infection Home Medications epinephrine 0.3 mg/0.3 mL injection, auto-injector 0.3 mg (0.3 mL) IM Q15M PRN anaphylaxis #2 ea 06/17/22 [Rx Last Taken Unknown] [id number]-FA 1 mg tablet 1 tab PO DAILY 07/13/22 [History Last Taken Unknown] famotidine 20 mg tablet 20 mg PO DAILY PRN PRN Heartburn 12/26/22 [History Last Taken Unknown] Allergy/AdvReac Type Severity Reaction Status Date / Time No Known Allergies Allergy Verified 07/25/22 21:16 Social History household members: significant other Smoking Status: Current every day smoker tobacco type: cigarettes details: Patient presently denies alcohol consumption. substance use type: does not use ROS Eyes Eyes: Denies blurry vision Cardiovascular Cardiovascular: Reports none; Denies chest pain at rest, chest pain with activity or dizziness Respiratory/Chest Respiratory/Chest: Denies cough or dyspnea Gastrointestinal Gastrointestinal: Reports none and other; Denies diarrhea or vomiting Genitourinary Genitourinary: Denies dysuria Musculoskeletal Musculoskeletal: Reports none Integumentary Integumentary: Reports none; Denies rash Neurologic Neurologic: Denies dizziness, headache(s) or other visual disturbances Psychiatric Psychiatric: Reports none Physical Exam Const alert and no apparent distress General Appearance: cooperative Orientation / Consciousness: awake Exam Limitations: no limitations HEENT normocephalic Eyes General Eye: normal appearance of both eyes Neck full ROM Chest inspection of chest normal Resp normal respiratory effort and normal air movement Effort and Inspection: symmetric chest movement Auscultation: clear to auscultation bilaterally Cardio regular rate GI soft to palpation, non-tender and non-distended Inspection: and other Back/Spine normal ROM Extremity full ROM, normal capillary refill and no calf tenderness Skin no rashes or lesions noted Neuro oriented x3 and CN's II-XII intact bilaterally Psych mental status grossly normal NST FHR Rate Baby A Baseline: 125 Variability:: Moderate Accelerations:: 15 x 15 Decelerations:: None NST Reactive:: Yes Uterine Activity:: None Assessment & Plan (1) 33 weeks gestation of : (2) Abnormal vaginal fluids: PLAN: Plan NST reactive ROM plus- negative D/C home with follow up in office this week Dr. Culp notified
== END 2022-12-26 17:10 | disposition home or self-care (01) ==
LOC: WPOUT 15:40 → WP 15:41
PROVIDERS: Referring Provider Advanced Practice Midwife; Visit Provider Advanced Practice Midwife
DX: O42.913 Preterm premature rupture of membranes, unspecified as to length of time between rupture and onset of labor, third trimester (principal); O99.333 Smoking (tobacco) complicating pregnancy, third trimester; F17.210 Nicotine dependence, cigarettes, uncomplicated; Z3A.33 33 weeks gestation of pregnancy
CPT/HCPCS: 59050; 84112; 99221; G0378

== ENCOUNTER 2023-01-28 12:00 | Inpatient (IN) | payer MEDICAID, SELFPAY ==
[2023-01-28] VITALS (46 sets, daily range): BP systolic 107–199; BP diastolic 48–126; PULSE 80–115; RESP 16–18; TEMP 36.2–36.5; O2SAT 86–100; BMI 39.4
[2023-01-28 10:16] LABS: ROM Internal Control Test YES-OK TO RESULT pt. (Internal QC); ROM Patient Test Negative (Negative)
[2023-01-28] MEDS: Lactated Ringers 1,000 ML 200 ML IV (12:25)
[2023-01-28] MEDS: LACTATED RINGERS 500 ML 999 ML IV ×2 (12:35→14:01)
[2023-01-28 12:48] LABS: Absolute Lymphocyte Count 1.95 X10^3/uL (0.83-4.51); Absolute Neutrophil Count 13.7 X10^3/uL (2.0-7.7); Basophil# 0.03 X10^3/uL; Basophil% 0.2 % (0-1); Eosinophil# 0.03 X10^3/uL; Eosinophils% 0.2 % (0-5); Hematocrit 38.3 % (37-47); Hemoglobin 12.7 g/dL (12.0-15.0); Lymphocyte # 1.95 X10^3/ul (0.83-4.51); Lymphocyte % 11.7 % (19-41); Mean Corp Hgb Conc 33.2 g/dL (32-36); Mean Corpuscular Hgb 30.4 pg (27.0-32.0); Mean Corpuscular Volume 91.6 fL (81-99); Mean Platelet Vol. 10.1 fl (6.2-12.0); Monocyte% 4.8 % (0-10); NRBC Flagged by Analyzer 0 % (0-5); Neutrophil # 13.71 X10^3/uL (2.7-7.7); Neutrophil % 82.6 % (47-70); Platelet Count 313 K/mm3 (150-450); RBC Distribution Width SD 46.6 fl (35.1-43.9); Red Blood Count 4.18 M/mm3 (4.2-5.4); White Blood Count 16.6 K/mm3 (4.4-11.0)
[2023-01-28 12:55] LABS: Bedside Glucose 108 mg/dL (74-106)
[2023-01-28 13:59] LABS: Syphilis Antibodies Non-reactive
[2023-01-28] MEDS: fentaNYL-bupivacaine (epidural) 100 ML BAG EPIDURAL (14:10)
[2023-01-28 15:11] LABS: Bedside Glucose 125 mg/dL (74-106)
--- NOTE | 2023-01-28 15:13 | PCM.HP.OB ---
HPI - General General Date of Admission: 01/28/23 HPI Narrative CLAUDINE CLINE, is a 27 F at 38.2 who presents to labor and delivery in spontaneous labor. complicated by obesity and GDM A2. Maternal Data Information NORA Calculator Estimated Delivery Date Method Current WG Current Estimate 02/09/23 Manual 38w 2d PFSH PFS Medical History Ectopic PCOS (polycystic ovarian syndrome) Physical exam, pre-employment Sexually transmitted infection Home Medications [id number] 1 mg tablet 1 tab PO DAILY 07/13/22 [History Last Taken 01/27/23] Allergy/AdvReac Type Severity Reaction Status Date / Time No Known Allergies Allergy Verified 07/25/22 21:16 Social History household members: significant other Smoking Status: Current every day smoker tobacco type: cigarettes details: Patient presently denies alcohol consumption. substance use type: does not use ROS Eyes Eyes: Denies blurry vision, change in vision or spots in vision ENT HEENT: Denies dizziness or headache(s) Cardiovascular Cardiovascular: Denies abdominal pain, chest pain or dyspnea Respiratory/Chest Respiratory/Chest: Denies cough, dyspnea, shortness of breath at rest or shortness of breath with exertion Gastrointestinal Gastrointestinal: Denies abdominal pain, diarrhea or vomiting Genitourinary Genitourinary: Denies change in urinary stream, difficulty urinating or dysuria Musculoskeletal Musculoskeletal: Reports none Integumentary Integumentary: Denies rash Neurologic Neurologic: Denies dizziness, headache(s), memory loss or weakness Psychiatric Psychiatric: Reports none Vital Signs Vital Signs Vital Signs: 01/28/23 09:27 01/28/23 09:27 01/28/23 13:04 Temperature Temperature Source Pulse Rate 90 104 H Blood Pressure 117/60 BP Systolic 117 BP Diastolic 60 Pulse Ox 01/28/23 13:04 01/28/23 13:05 01/28/23 13:05 Temperature Temperature Source Pulse Rate 106 H Blood Pressure BP Systolic BP Diastolic Pulse Ox 98 86 01/28/23 13:11 01/28/23 13:12 01/28/23 13:12 Temperature Temperature Source Tympanic Pulse Rate 104 H Blood Pressure 115/64 BP Systolic 115 BP Diastolic 64 Pulse Ox 01/28/23 13:11 01/28/23 13:18 01/28/23 13:18 Temperature 97.1 F L Temperature Source Pulse Rate 106 H Blood Pressure 133/78 H BP Systolic 133 BP Diastolic 78 Pulse Ox 01/28/23 13:20 01/28/23 13:20 01/28/23 13:22 Temperature Temperature Source Pulse Rate 97 Blood Pressure 129/69 H BP Systolic 129 BP Diastolic 69 Pulse Ox 91 01/28/23 13:22 01/28/23 13:25 01/28/23 13:25 Temperature Temperature Source Pulse Rate 104 H 99 Blood Pressure BP Systolic BP Diastolic Pulse Ox 98 01/28/23 13:27 01/28/23 13:27 01/28/23 13:29 Temperature Temperature Source Pulse Rate 89 108 H Blood Pressure 119/60 BP Systolic 119 BP Diastolic 60 Pulse Ox 01/28/23 13:29 01/28/23 13:30 01/28/23 13:30 Temperature Temperature Source Pulse Rate 106 H Blood Pressure BP Systolic BP Diastolic Pulse Ox 94 97 01/28/23 13:32 01/28/23 13:32 01/28/23 13:35 Temperature Temperature Source Pulse Rate 107 H 115 H Blood Pressure 139/77 H BP Systolic 139 BP Diastolic 77 Pulse Ox 01/28/23 13:35 01/28/23 13:36 01/28/23 13:36 Temperature Temperature Source Pulse Rate 101 H Blood Pressure BP Systolic BP Diastolic Pulse Ox 99 92 01/28/23 13:38 01/28/23 13:38 01/28/23 13:40 Temperature Temperature Source Pulse Rate 107 H 106 H Blood Pressure 139/67 H BP Systolic 139 BP Diastolic 67 Pulse Ox 01/28/23 13:40 01/28/23 13:43 01/28/23 13:43 Temperature Temperature Source Pulse Rate 98 Blood Pressure BP Systolic BP Diastolic Pulse Ox 96 92 01/28/23 13:45 01/28/23 13:45 01/28/23 13:47 Temperature Temperature Source Pulse Rate 97 Blood Pressure 119/78 BP Systolic 119 BP Diastolic 78 Pulse Ox 99 01/28/23 13:47 01/28/23 13:52 01/28/23 13:52 Temperature Temperature Source Pulse Rate 100 101 H Blood Pressure 111/56 L BP Systolic 111 BP Diastolic 56 Pulse Ox 01/28/23 13:53 01/28/23 13:53 01/28/23 13:57 Temperature Temperature Source Pulse Rate 102 H Blood Pressure 116/60 BP Systolic 116 BP Diastolic 60 Pulse Ox 99 01/28/23 13:57 01/28/23 13:58 01/28/23 13:58 Temperature Temperature Source Pulse Rate 98 102 H Blood Pressure BP Systolic BP Diastolic Pulse Ox 98 01/28/23 14:02 01/28/23 14:02 01/28/23 14:03 Temperature Temperature Source Pulse Rate 96 97 Blood Pressure 107/52 L BP Systolic 107 BP Diastolic 52 Pulse Ox 01/28/23 14:03 01/28/23 14:08 01/28/23 14:08 Temperature Temperature Source Pulse Rate 92 Blood Pressure 199/126 H BP Systolic 199 BP Diastolic 126 Pulse Ox 100 01/28/23 14:08 01/28/23 14:09 01/28/23 14:09 Temperature Temperature Source Pulse Rate 98 Blood Pressure 117/55 L BP Systolic 117 BP Diastolic 55 Pulse Ox 99 01/28/23 14:13 01/28/23 14:13 01/28/23 14:17 Temperature Temperature Source Pulse Rate 100 Blood Pressure 130/61 H 135/56 H BP Systolic 130 135 BP Diastolic 61 56 Pulse Ox 01/28/23 14:17 01/28/23 14:22 01/28/23 14:22 Temperature Temperature Source Pulse Rate 102 H 107 H Blood Pressure 134/73 H BP Systolic 134 BP Diastolic 73 Pulse Ox 01/28/23 14:28 01/28/23 14:28 01/28/23 15:08 Temperature Temperature Source Pulse Rate 105 H Blood Pressure 125/58 H 110/61 BP Systolic 125 110 BP Diastolic 58 61 Pulse Ox 01/28/23 15:08 01/28/23 15:10 01/28/23 15:10 Temperature 97.2 F L Temperature Source Tympanic Pulse Rate 108 H Blood Pressure BP Systolic BP Diastolic Pulse Ox Weight Weight: 230 lb Body Mass Index (BMI) 39.4 Physical Exam Const alert, oriented x3 and no apparent distress General Appearance: cooperative Orientation / Consciousness: awake Exam Limitations: no limitations HEENT normocephalic Head and Scalp: normal to inspection Eyes General Eye: normal appearance of both eyes Neck full ROM and no lymphadenopathy Lymph Lymphatic: no lymphadenopathy noted Chest inspection of chest normal Resp normal respiratory effort, normal air movement and clear to auscultation bilaterally Effort and Inspection: able to speak in complete sentences and symmetric chest movement Cardio regular rate and regular rhythm GI normal to inspection, nondistended, normoactive bowel sounds Manual OB Exam: presentation cephalic Amniotic Fluid: clear amniotic fluid Back/Spine normal ROM Extremity full ROM and no calf tenderness Skin no rashes or lesions noted General Skin Exam: no breakdown Neuro oriented x3 and CN's II-XII intact bilaterally Psych mental status grossly normal and thought process normal Labs Labs Labs: Blood Type A POSITIVE Antibody Screen NEGATIVE Hct 38.3 % (37-47) Hgb 12.7 g/dL (12.0-15.0) Obstetrics US Syphilis Total Ab Non-reactive Assessment & Plan (1) 38 weeks gestation of : (2) Spontaneous onset of labor: (3) GDM, class A2: (4) Obesity affecting : (5) Tobacco smoking affecting : PLAN: Plan Admit to labor and delivery Start IV and run fluids per orders Start Diabetes protocol GBS negative Cat. 2 tracing with variable decelerations CE-9cm/bulging bag AROM for small amount of clear fluid FSE placed due to variable decelerations and difficulty tracing FHT due to maternal size Anticipate Dr. Kirby involved with plan of care and is collaborating physician
[2023-01-28] MEDS: Oxytocin 15 Units/NS 250ml 15 UNITS/250 ML IV.SOLN 334 UNITS IV (16:06)
--- NOTE | 2023-01-28 16:20 | EX.PCM.OBRPT ---
Assessment & Plan (1) (spontaneous vaginal delivery): (2) Tobacco smoking affecting : (3) Obesity affecting : (4) GDM, class A2: (5) Care and examination of lactating mother: Maternal Data Information NORA Calculator Estimated Delivery Date Method Current WG Current Estimate 02/09/23 Manual 38w 2d Vaginal Delivery Maternal Presentation Maternal Presentation: Active Labor Maternal Presentation: at 38.2 weeks gestation that presented in spontaneous labor. Type of Induction: Amniotomy (Augmentation) Operative Information Date of Procedure: 01/28/23 Pre-Operative Diagnosis: Term gestation, Spontaneous onset of labor Post-Operative Diagnosis: , Live female infant Surgery / Procedure Performed: Spontaneous Vaginal Delivery Type of Anesthesia: Epidural Drain: - (straight cath-200 cc clear/yellow urine) Estimated Blood Loss: 200 Time of Delivery: 16:03 Findings Description of Procedure: Patient found to be complete dilation and +1 station. With good maternal effort and pushing, infant head delivered over intact perineum. Tight nuchal cord unable to be reduced and anterior shoulder and remainder of body delivered via somersault maneuver. Cord around body was loose and easily reduced. Vigorous female placed on maternal abdomen and attended to by nursing staff. 3 vessel cord clamped and cut by FOB after delay and placed immediately skin to skin with patient. Pitocin IV started for active management of the third stage of labor. Placenta delivered spontaneously and intact. Fundus firm 2 below U. Perineum and vagina intact. Hemostasis obtained. EBL 200 cc. APGARS 8/9. Patient and infant bonding well at this time. Dr. Kirby in route to hospital and was updated. Presentation: Vertex Amniotic Membrane Rupture Type: Artificial Time of Membrane Rupture: 1436 Amniotic Fluid Description: Clear Placental Delivery Description: Spontaneous Placenta Disposition: [facility] Cord Vessel Description: 3 Vessels Cord Entanglement: Around neck x 1, tight and - (Around body x1 loose) Nuchal Cord Compression: Without compression Infant A Gender: Female (1 minute): 8 (5 minute): 9 Delayed Cord Clamping: Yes Post Vaginal Delivery Medications Given After Delivery: IV Pitocin Episiotomy Description: None Laceration: None Complication Complications: None
[2023-01-28] MEDS: Oxytocin 15 Units/NS 250ml 15 UNITS/250 ML IV.SOLN 83 UNITS IV (17:24)
[2023-01-28 20:06] LABS: Bedside Glucose 135 mg/dL (74-106)
[2023-01-29 03:30] VITALS: BP 110/55; PULSE 80; RESP 16; TEMP 36.4
[2023-01-29 04:16] LABS: Bedside Glucose 96 mg/dL (74-106)
--- NOTE | 2023-01-29 06:47 | PN.OBGYN_ITS ---
Subjective Subjective Patient seen at bedside. Feeling good. Having some difficulty with and working with . Ambulating and voiding without difficulty. Pain controlled. Objective Data Objective Data Vital Signs: Vital Signs Temp Pulse Resp BP Pulse Ox O2 Del Method 97.7 F L 95 18 111/48 L 97 Room Air 01/28/23 23:55 01/28/23 23:55 01/28/23 23:55 01/28/23 23:55 01/28/23 19:24 01/28/23 23:55 Oxygen Delivery Method Room Air Weight: 230 lb Body Mass Index (BMI) 39.4 Intake & Output: Intake and Output for Last 24 Hours 01/27/23 01/28/23 01/29/23 23:59 23:59 23:59 Intake Total 2258 / 2258 Output Total 1800 / 1800 Balance 458 / 458 Lab / Micro Data Result Diagrams: 01/28/23 12:20 Labs: Laboratory Results - last 24 hr 01/28/23 09:40: Vag Amniotic Fld Detect Negative 01/28/23 12:20: WBC 16.6 H, RBC 4.18 L, Hgb 12.7, Hct 38.3, MCV 91.6, MCH 30.4, MCHC 33.2, RDW Std Deviation 46.6 H, RDW Coeff of [place] 14.0, Plt Count 313, MPV 10.1, Immature Gran % (Auto) 0.500, Neut % (Auto) 82.6 H, Lymph % (Auto) 11.7 L, [place] % (Auto) 4.8, Eos % (Auto) 0.2, Baso % (Auto) 0.2, Absolute Neuts (auto) 13.7 H, Absolute Lymphs (auto) 1.95, Nucleated RBC % 0 01/28/23 12:20: Blood Type A POSITIVE, Antibody Screen NEGATIVE 01/28/23 12:20: Syphilis Total Ab Non-reactive 01/28/23 12:35: POC Glucose 108 H 01/28/23 14:50: POC Glucose 125 H 01/28/23 19:21: POC Glucose 135 H 01/29/23 03:43: POC Glucose 96 ROS Eyes Eyes: Denies blurry vision, change in vision or spots in vision ENT HEENT: Denies dizziness or headache(s) Cardiovascular Cardiovascular: Denies abdominal pain, chest pain or dyspnea Respiratory/Chest Respiratory/Chest: Denies cough, dyspnea, shortness of breath at rest or shortness of breath with exertion Gastrointestinal Gastrointestinal: Denies abdominal pain, diarrhea or vomiting Genitourinary Genitourinary: Denies change in urinary stream, difficulty urinating or dysuria Musculoskeletal Musculoskeletal: Reports none Integumentary Integumentary: Denies rash Neurologic Neurologic: Denies dizziness, headache(s), memory loss or weakness Physical Exam Const alert and no apparent distress General Appearance: cooperative and comfortable Exam Limitations: no limitations HEENT normocephalic Eyes General Eye: normal appearance of both eyes Neck full ROM General: normal visual inspection Chest Chest: symmetrical chest wall rise Resp normal respiratory effort and normal air movement Effort and Inspection: symmetric chest movement Auscultation: clear to auscultation bilaterally Cardio regular rate and regular rhythm GI normal to inspection, nondistended, normoactive bowel sounds Back/Spine normal ROM Extremity full ROM and no calf tenderness General Extremity: normal exam except as noted Skin no rashes or lesions noted Neuro CN's II-XII intact bilaterally Psych mental status grossly normal Assessment & Plan (1) (spontaneous vaginal delivery): (2) Tobacco smoking affecting : (3) Obesity affecting : (4) GDM, class A2: (5) Care and examination of lactating mother: PLAN: Plan Fasting BS- 96 PPD 1 support Pain control Anticipate discharge home tomorrow
[2023-01-29 07:43] VITALS: BP 125/53; PULSE 92; RESP 18; TEMP 36.4
[2023-01-29 11:21] VITALS: BP 116/54; PULSE 94; RESP 20; TEMP 36.4
[2023-01-29 15:54] VITALS: BP 115/72; PULSE 92; RESP 18; TEMP 36.4
[2023-01-29 19:55] VITALS: BP 123/69; PULSE 86; RESP 18; TEMP 36.6
--- NOTE | 2023-01-30 02:42 | NURSING ---
mother very tired and anxious with baby care
[2023-01-30 02:57] VITALS: BP 115/54; PULSE 81; RESP 16; TEMP 36.4; O2SAT 96
[2023-01-30 08:45] VITALS: BP 119/57; PULSE 88; RESP 18; TEMP 36.6; O2SAT 97
--- NOTE | 2023-01-30 08:45 | PCM.PN.OB ---
Subjective Subjective Patient seen at bedside. Ambulating in room. going good with segura. Denies any pain. Lochia decreased. Desires discharge home today. Objective Data Objective Data Vital Signs: Vital Signs Temp Pulse Resp BP Pulse Ox O2 Del Method 97.6 F L 81 16 115/54 L 96 Room Air 01/30/23 02:57 01/30/23 02:57 01/30/23 02:57 01/30/23 02:57 01/30/23 02:57 01/30/23 02:57 Oxygen Delivery Method Room Air Weight: 230 lb Body Mass Index (BMI) 39.4 Intake & Output: Intake and Output for Last 24 Hours 01/28/23 01/29/23 01/30/23 23:59 23:59 23:59 Intake Total 2258 / 2258 Output Total 1800 / 1800 Balance 458 / 458 Lab / Micro Data Result Diagrams: 01/28/23 12:20 ROS Eyes Eyes: Denies blurry vision, change in vision or spots in vision ENT HEENT: Denies dizziness or headache(s) Cardiovascular Cardiovascular: Denies abdominal pain, chest pain or dyspnea Respiratory/Chest Respiratory/Chest: Denies cough, dyspnea, shortness of breath at rest or shortness of breath with exertion Gastrointestinal Gastrointestinal: Denies abdominal pain, diarrhea or vomiting Genitourinary Genitourinary: Denies change in urinary stream, difficulty urinating or dysuria Musculoskeletal Musculoskeletal: Reports none Integumentary Integumentary: Denies rash Neurologic Neurologic: Denies dizziness, headache(s), memory loss or weakness Physical Exam Const alert and no apparent distress General Appearance: cooperative and comfortable Exam Limitations: no limitations HEENT normocephalic Eyes General Eye: normal appearance of both eyes Neck full ROM General: normal visual inspection Chest Chest: symmetrical chest wall rise Resp normal respiratory effort and normal air movement Effort and Inspection: symmetric chest movement Auscultation: clear to auscultation bilaterally Cardio regular rate and regular rhythm GI normal to inspection, nondistended, normoactive bowel sounds Back/Spine normal ROM Extremity full ROM and no calf tenderness General Extremity: normal exam except as noted Skin no rashes or lesions noted Neuro CN's II-XII intact bilaterally Psych mental status grossly normal Assessment & Plan (1) Care and examination of lactating mother: (2) (spontaneous vaginal delivery): (3) Obesity affecting : (4) GDM, class A2: PLAN: Plan PPD 2 Routine care Pain control D/C home with follow up in office
--- NOTE | 2023-01-30 08:46 | DCINST_ITS ---
Discharge Instructions Diet Discharge Diet: No restrictions Activity Discharge Activity: Return to Normal Activity, May Shower and May Take a Tub Bath May resume sexual activity in: 4-6 weeks Weight Bearing Status: Weight bearing as tolerated Dressing / Incision Call your doctor if you observe: Inability to urinate, Using more than 1 pad per hour, Shortness of breath, Dizziness, Swelling in the ankles, Chest pain, Calf discomfort and Uncontrolled pain Follow Up Care Please Follow Up With: Karlene Escobar CNM When: Within 10 days Test Results: Test results from this visit will be discussed in further detail at your follow- up appointment, if applicable. Discharge Plan Admission Admit Date/Time: 01/28/23 12:00 Primary Reason for Your Visit: Labor and Delivery Attending Provider: Karlene Escobar Primary Care Provider: Care Physician,Sandra Primary Discharge Orders/Prescriptions Prescriptions: Continued [id number] 1 mg Tablet 1 tab PO DAILY Referrals / Follow Up: Care Physician,No Primary [Primary Care Provider] - Disposition Disposition (needs filled in before D/C Order can be placed): Home, Self Care
[2023-01-30 11:48] VITALS: BP 119/57; PULSE 88; RESP 18; TEMP 36.6; O2SAT 97
--- NOTE | 2023-02-03 17:46 | NURSING ---
Follow up questions asked today by Yue MEJÍA at [facility] visit. Pt. denies concerns. No s+s. Loved all the staff and going well.
== END 2023-01-30 12:00 | disposition home or self-care (01) | DRG 560 ==
LOC: WPOUT 01-29 10:50
PROVIDERS: Obstetrics & Gynecology; Admitting Provider Advanced Practice Midwife; Referring Provider Advanced Practice Midwife; Visit Provider Advanced Practice Midwife
DX: O76 Abnormality in fetal heart rate and rhythm complicating labor and delivery (principal); Z37.0 Single live birth; O24.420 Gestational diabetes mellitus in childbirth, diet controlled; F17.210 Nicotine dependence, cigarettes, uncomplicated; Z3A.38 38 weeks gestation of pregnancy; O99.214 Obesity complicating childbirth; O99.334 Smoking (tobacco) complicating childbirth; O69.82X0 Labor and delivery complicated by other cord entanglement, without compression, not applicable or unspecified; O69.81X0 Labor and delivery complicated by cord around neck, without compression, not applicable or unspecified
CPT/HCPCS: 59025; 59050; 82962; 84112; 85025; 86780; 86850; 86900; 86901; 99221; 99406; J7120; G0378